=== PATIENT | male | born 1990 | race Hispanic/Latino ===

== ENCOUNTER 2023-09-14 23:40 | Emergency (ER) | payer BC ==
[~2023-09-14] VITALS: Ht 162.6 cm; Wt 74.4 kg
[2023-09-15 00:03] LABS: RAPID GROUP A STREP negative (NEGATIVE)
[2023-09-15 00:12] LABS: SARS-CoV-2, RNA, NAAT NEGATIVE SARS CoV-2 (NEGATIVE)
[2023-09-15 00:14] LABS: INFLUENZA TYPE A Negative For Type A (NEGATIVE); INFLUENZA TYPE B Negative For Type B (NEGATIVE)
[2023-09-15] MEDS ORDERED: PRED20TA3 PO (03:11)
[2023-09-15] MEDS ORDERED: AZIT500T2 PO (03:11)
[2023-09-15] MEDS ORDERED: ALBU90AE2 IH (03:11)
[2023-09-15 03:15] VITALS: BP 134/78; PULSE 77; RESP 14; O2SAT 98
== END 2023-09-15 03:18 | disposition home or self-care (01) ==
LOC: EDH 23:40
DX: J20.9 Acute bronchitis, unspecified (principal); R50.9 Fever, unspecified; G43.909 Migraine, unspecified, not intractable, without status migrainosus; Z20.822 Contact with and (suspected) exposure to COVID-19; Z98.890 Other specified postprocedural states
CPT/HCPCS: 71045; 87635; 87804; 87880